=== PATIENT | male | born 1965 | race Caucasian/White ===

== ENCOUNTER 2019-05-17 15:00 | Inpatient (IN) ==
[2019-05-18] MEDS ORDERED: ACETAMINOPHEN 325 MG TABLET PO PRN (13:05)
[2019-05-18] MEDS ORDERED: ONDANSETRON 4 MG/2 ML VIAL IV PRN (13:05)
[2019-05-18] MEDS ORDERED: MORPHINE 4 MG/1 ML VIAL IV PRN (13:05)
[2019-05-18 13:41] LABS: Basophils % 0.2 % (0.0-0.8); Eosinophils % 0.3 % (0.00-10.9); Hematocrit 42.9 VOL% (42.0-52.0); Hemoglobin 13.6 GM/DL (14.0-18.0); Immature Granulocytes % 0.7 %; Lymphocytes # 1.8 10*3/uL (1.4-4.0); Lymphocytes % 12.2 % (21.2-54.2); Mean Corpuscular HGB Conc 31.7 GM/DL (32-36); Mean Corpuscular Volume 90.1 FL (87-102); Mean Platelet Volume 10.1 FL (9.6-12.0); Neutrophils % 79.6 % (38.7-73.9); Platelet Count 339 T/CUMM (130-400); Red Blood Count 4.76 MC/CUMM (3.8-5.5); White Blood Count 15.1 T/CUMM (4-12)
[2019-05-18 14:12] LABS: Albumin 4.1 G/DL (3.4-5.0); Bilirubin,Total 0.4 MG/DL (0.2-1.0); Calcium 9.7 MG/DL (8.5-10.1); Osmolality,Calculated 269.2 MOS/KG (273-304); Thyroid Stimulating Hormone 0.998 uIU/ml (0.358-3.74); Total Protein 8.1 G/DL (6.4-8.3)
[2019-05-18] MEDS: methylPREDNISolone SOD SUC 125 MG/2 ML VIAL IV SCH (16:03)
[2019-05-18] MEDS: SODIUM CHLORIDE 0.9% 1,000 ML IV SCH (16:03)
[2019-05-18] MEDS: IMMUNE GLOBULIN 10% 20 GM, IMMUNE GLOBULIN 10% 20 GM in PREMIX 1 EACH IV SCH (17:30)
[2019-05-18 17:42] LABS: Apearance,Urine CLEAR (Clear); Bilirubin,Urine Negative (Negative); Blood, Urine Negative (Negative); Glucose,Urine (UA) Negative (Negative); Hyaline Casts,Urine 11 /LPF (0-3); Ketones,Urine Negative (Negative); Mucus,Urine Occasional /LPF (Occasional); Nitrite,Urine Negative (Negative); Protein,Urine Negative; RBC,Urine <1 /HPF (0-4); Urine Color Yellow (Yellow); Urine Specific Gravity 1.018 (1.001-1.035); WBC,Urine <1 /HPF (0-6)
[2019-05-18] MEDS: ENOXAPARIN 40 MG/0.4 ML SYRINGE SUBCUT SCH (20:22)
[2019-05-19] MEDS: methylPREDNISolone SOD SUC 125 MG/2 ML VIAL IV SCH ×2 (01:30→12:30)
[2019-05-19] MEDS: SODIUM CHLORIDE 0.9% 1,000 ML IV SCH (06:15)
[2019-05-19] MEDS ORDERED: PANTOPRAZOLE 40 MG TABLET PO SCH (09:00)
[2019-05-19] MEDS: IMMUNE GLOBULIN 10% 20 GM, IMMUNE GLOBULIN 10% 20 GM in PREMIX 1 EACH IV SCH (15:01)
[2019-05-19] MEDS: ENOXAPARIN 40 MG/0.4 ML SYRINGE SUBCUT SCH (20:00)
[2019-05-20] MEDS: methylPREDNISolone SOD SUC 125 MG/2 ML VIAL IV SCH (00:58)
[2019-05-20] MEDS ORDERED: predniSONE 10 MG TABLET PO SCH (09:00)
[2019-05-20] MEDS ORDERED: methylPREDNISolone SOD SUC 125 MG/2 ML VIAL IV ONE (12:00)
[2019-05-20] MEDS: IMMUNE GLOBULIN 10% 20 GM, IMMUNE GLOBULIN 10% 20 GM in PREMIX 1 EACH IV SCH (14:30)
[2019-05-20 20:18] VITALS: BP 125/72
== END 2019-05-20 19:40 | disposition home or self-care (01) | DRG 57 ==
LOC: SUATTDRO 05-18 12:27 → N.4E 05-18 12:27
PROVIDERS: ADMIT Internal Medicine; ATTEND Family Medicine

== ENCOUNTER 2021-01-06 16:47 | Observation (INO) ==
[2021-01-06 18:15] LABS: Basophils % 0.1 % (0.0-0.8); Eosinophils # 0.1 10*3/uL (0.0-0.87); Eosinophils % 0.3 % (0.00-10.9); Hematocrit 38.7 VOL% (42.0-52.0); Hemoglobin 12.6 GM/DL (14.0-18.0); Immature Granulocytes % 1.1 %; Lymphocytes # 1.5 10*3/uL (1.4-4.0); Lymphocytes % 8.1 % (21.2-54.2); Mean Corpuscular HGB Conc 32.6 GM/DL (32-36); Mean Corpuscular Volume 90.8 FL (87-102); Mean Platelet Volume 10.8 FL (9.6-12.0); Monocytes % 6.9 % (1.7-12.7); Neutrophils % 83.5 % (38.7-73.9); Platelet Count 226 T/CUMM (130-400); Red Blood Count 4.26 MC/CUMM (3.8-5.5); Red Cell Distribution Width 14.1 % (9.3-17.3); White Blood Count 18.4 T/CUMM (4-12)
[2021-01-06 18:34] LABS: Albumin 3.5 G/DL (3.4-5.0); Bilirubin,Total 0.6 MG/DL (0.20-1.00); Calcium 9.3 MG/DL (8.5-10.1); Osmolality,Calculated 273.8 MOS/KG (273-304); Potassium 4.4 MMOL/L (3.5-5.1); Total Protein 7.3 G/DL (6.4-8.2)
[2021-01-06] MEDS ORDERED: cefTRIAXone 2,000 MG in SODIUM CHLORIDE 0.9% 100 ML IV STA (19:00)
[2021-01-06] MEDS ORDERED: ENOXAPARIN 30 MG/0.3 ML SYRINGE SUBCUT STA (19:01)
[2021-01-06] MEDS ORDERED: GLUCAGON 1 MG VIAL IM PRN (19:18)
[2021-01-06] MEDS ORDERED: DEXTROSE 50% 25 GM/50 ML VIAL IV PRN (19:18)
[2021-01-06] MEDS ORDERED: ONDANSETRON 4 MG/2 ML VIAL IV PRN (19:18)
[2021-01-06] MEDS ORDERED: predniSONE 10 MG TABLET PO SCH (21:00)
[2021-01-06] MEDS ORDERED: methylPREDNISolone SOD SUC 125 MG/2 ML VIAL IV ONE (21:00)
[2021-01-06] MEDS: AZITHROMYCIN INJ 500 MG in SODIUM CHLORIDE 0.9% 250 ML IV SCH (22:00)
[2021-01-06] MEDS: LACTATED RINGERS 1,000 ML IV SCH (22:00)
[2021-01-06] MEDS: methylPREDNISolone SOD SUC 125 MG/2 ML VIAL IV SCH (22:00)
[2021-01-06] MEDS: PYRIDOSTIGMINE BROMIDE 180 MG PO SCH (22:21)
[2021-01-06] MEDS: CALCIUM (CARBONATE)/VITAMIN D 600 MG-400 UNIT TABLET PO SCH (22:21)
[2021-01-06] MEDS: GLYCOPYRROLATE 1 MG TABLET PO SCH (22:21)
[2021-01-06] MEDS: ASCORBIC ACID 500 MG TABLET PO SCH (22:22)
[2021-01-06] MEDS ORDERED: IMMUNE GLOBULIN 10% 40 GM in PREMIX 1 EACH IV SCH (23:00)
[2021-01-06] MEDS ORDERED: ACETAMINOPHEN 325 MG TABLET PO ONE (23:05)
[2021-01-06] MEDS ORDERED: diphenhydrAMINE CAP 50 MG CAPSULE PO STA (23:05)
[2021-01-06] MEDS ORDERED: diphenhydrAMINE CAP 25 MG CAPSULE ONE (23:08)
[2021-01-07] MEDS: ALBUTEROL/IPRATROPIUM 3 ML NEB RESP TX SCH ×4 (01:08→19:58)
[2021-01-07] MEDS: methylPREDNISolone SOD SUC 125 MG/2 ML VIAL IV SCH ×4 (03:00→22:16)
[2021-01-07 03:39] LABS: Bilirubin,Urine Negative (Negative); Blood, Urine Negative (Negative); Glucose,Urine (UA) Negative (Negative); Ketones,Urine 5 mg/dL (Negative); Mucus,Urine Occasional /LPF (Occasional); Nitrite,Urine Negative (Negative); Protein,Urine 30 MG/DL; RBC,Urine 2 /HPF (0-4); Urine Appearance CLEAR (Clear); Urine Color Yellow (Yellow); Urine Specific Gravity 1.012 (1.001-1.035); Urine Urobilinogen < 2.0 EU/DL (0.2-1.0)
[2021-01-07 04:41] LABS: Basophils % 0.1 % (0.0-0.8); Eosinophils % 0.1 % (0.00-10.9); Hematocrit 36.7 VOL% (42.0-52.0); Hemoglobin 12.1 GM/DL (14.0-18.0); Immature Granulocytes % 1.3 %; Immature Granulocytes Absolute 0.21 #; Lymphocytes # 1.3 10*3/uL (1.4-4.0); Lymphocytes % 8.1 % (21.2-54.2); Mean Corpuscular Volume 89.3 FL (87-102); Monocytes % 2.4 % (1.7-12.7); Platelet Count 206 T/CUMM (130-400); Red Blood Count 4.11 MC/CUMM (3.8-5.5); Red Cell Distribution Width 13.8 % (9.3-17.3)
[2021-01-07 04:58] LABS: Albumin 3.2 G/DL (3.4-5.0); Bilirubin,Total 0.4 MG/DL (0.20-1.00); Calcium 9.2 MG/DL (8.5-10.1); Osmolality,Calculated 267.5 MOS/KG (273-304); Total Protein 8.2 G/DL (6.4-8.2)
[2021-01-07 05:07] LABS: Platelet Estimate Adequate
[2021-01-07] MEDS: ENOXAPARIN 40 MG/0.4 ML SYRINGE SUBCUT SCH (08:55)
[2021-01-07] MEDS: CALCIUM (CARBONATE)/VITAMIN D 600 MG-400 UNIT TABLET PO SCH ×2 (09:00→22:15)
[2021-01-07] MEDS: ASCORBIC ACID 500 MG TABLET PO SCH ×2 (09:00→22:15)
[2021-01-07] MEDS ORDERED: cefTRIAXone 1,000 MG VIAL IM SCH (09:00)
[2021-01-07] MEDS: PYRIDOSTIGMINE 60 MG TABLET PO SCH ×3 (09:00→17:16)
[2021-01-07] MEDS: PANTOPRAZOLE 40 MG TABLET PO SCH (09:00)
[2021-01-07] MEDS: amLODIPine 10 MG TABLET PO SCH (09:00)
[2021-01-07] MEDS: GLYCOPYRROLATE 1 MG TABLET PO SCH ×2 (09:02→22:14)
[2021-01-07] MEDS: azaTHIOprine 50 MG TABLET PO SCH (09:28)
[2021-01-07 14:23] LABS: Basophils % 0.1 % (0.0-0.8); Hematocrit 36.8 VOL% (42.0-52.0); Hemoglobin 12.3 GM/DL (14.0-18.0); Immature Granulocytes Absolute 0.28 #; Lymphocytes # 1.6 10*3/uL (1.4-4.0); Lymphocytes % 11.1 % (21.2-54.2); Mean Corpuscular HGB Conc 33.4 GM/DL (32-36); Mean Corpuscular Volume 88.5 FL (87-102); Mean Platelet Volume 10.2 FL (9.6-12.0); Monocytes % 3.1 % (1.7-12.7); Neutrophils % 83.7 % (38.7-73.9); Platelet Count 222 T/CUMM (130-400); Red Blood Count 4.16 MC/CUMM (3.8-5.5); Red Cell Distribution Width 13.8 % (9.3-17.3); White Blood Count 14.2 T/CUMM (4-12)
[2021-01-07 14:54] LABS: Atypical Lymphocytes Few
[2021-01-07 14:56] LABS: Anisocytosis Slight
[2021-01-07] MEDS: LACTATED RINGERS 1,000 ML IV SCH ×2 (15:26→15:35)
[2021-01-07] MEDS ORDERED: IMMUNE GLOBULIN IV ONE ×2 (16:00→18:00)
[2021-01-07] MEDS ORDERED: ACETAMINOPHEN 500 MG TABLET PO ONE (17:00)
[2021-01-07] MEDS ORDERED: diphenhydrAMINE CAP 50 MG CAPSULE PO ONE (17:00)
[2021-01-07] MEDS: PYRIDOSTIGMINE BROMIDE 180 MG PO SCH (22:15)
[2021-01-07] MEDS: AZITHROMYCIN INJ 500 MG in SODIUM CHLORIDE 0.9% 250 ML IV SCH (22:16)
[2021-01-07] MEDS: cefTRIAXone 1,000 MG in SODIUM CHLORIDE 0.9% 100 ML IV SCH (22:16)
[2021-01-08] MEDS: ALBUTEROL/IPRATROPIUM 3 ML NEB RESP TX SCH ×4 (00:41→18:56)
[2021-01-08] MEDS: methylPREDNISolone SOD SUC 125 MG/2 ML VIAL IV SCH ×4 (04:06→20:00)
[2021-01-08 05:09] LABS: Basophils % 0.2 % (0.0-0.8); Hematocrit 36.6 VOL% (42.0-52.0); Hemoglobin 11.8 GM/DL (14.0-18.0); Immature Granulocytes % 1.6 %; Immature Granulocytes Absolute 0.27 #; Lymphocytes # 3.2 10*3/uL (1.4-4.0); Lymphocytes % 18.9 % (21.2-54.2); Mean Corpuscular HGB Conc 32.2 GM/DL (32-36); Mean Corpuscular Volume 90.6 FL (87-102); Mean Platelet Volume 10.5 FL (9.6-12.0); Monocytes % 5.4 % (1.7-12.7); Neutrophils % 73.9 % (38.7-73.9); Platelet Count 237 T/CUMM (130-400); Red Blood Count 4.04 MC/CUMM (3.8-5.5); Red Cell Distribution Width 13.7 % (9.3-17.3); White Blood Count 16.7 T/CUMM (4-12)
[2021-01-08 05:32] LABS: Osmolality,Calculated 276.2 MOS/KG (273-304); Potassium 4.1 MMOL/L (3.5-5.1)
[2021-01-08 05:40] LABS: Band Neutrophils 3 % (0-10); Lymphocytes 16 % (20-55); Platelet Estimate Normal; Segmented Neutrophils 78 % (50-85); Total Cells Counted 100
[2021-01-08] MEDS: PANTOPRAZOLE 40 MG TABLET PO SCH (06:01)
[2021-01-08] MEDS: CALCIUM (CARBONATE)/VITAMIN D 600 MG-400 UNIT TABLET PO SCH ×2 (08:51→20:01)
[2021-01-08] MEDS: ENOXAPARIN 40 MG/0.4 ML SYRINGE SUBCUT SCH (08:51)
[2021-01-08] MEDS: GLYCOPYRROLATE 1 MG TABLET PO SCH ×2 (08:52→19:59)
[2021-01-08] MEDS: amLODIPine 10 MG TABLET PO SCH (08:52)
[2021-01-08] MEDS: azaTHIOprine 50 MG TABLET PO SCH (08:52)
[2021-01-08] MEDS: ASCORBIC ACID 500 MG TABLET PO SCH ×2 (08:52→20:01)
[2021-01-08] MEDS: PYRIDOSTIGMINE 60 MG TABLET PO SCH ×3 (08:52→16:30)
[2021-01-08] MEDS: LACTATED RINGERS 1,000 ML IV SCH ×3 (08:52→22:08)
[2021-01-08] MEDS ORDERED: ACETAMINOPHEN 500 MG TABLET PO PRN (19:08)
[2021-01-08] MEDS: ALUMINUM/MAGNES/SIMETH MAX STR 30 ML UDCUP PO SCH ×2 (19:48→20:13)
[2021-01-08] MEDS: cefTRIAXone 1,000 MG in SODIUM CHLORIDE 0.9% 100 ML IV SCH (19:59)
[2021-01-08] MEDS: PYRIDOSTIGMINE BROMIDE 180 MG PO SCH (20:00)
[2021-01-09] MEDS: ALBUTEROL/IPRATROPIUM 3 ML NEB RESP TX SCH ×2 (01:46→09:36)
[2021-01-09] MEDS: methylPREDNISolone SOD SUC 125 MG/2 ML VIAL IV SCH ×2 (04:12→09:10)
[2021-01-09] MEDS: PANTOPRAZOLE 40 MG TABLET PO SCH ×2 (04:12→06:03)
[2021-01-09 04:49] LABS: Basophils % 0.2 % (0.0-0.8); Hematocrit 37.6 VOL% (42.0-52.0); Hemoglobin 12.1 GM/DL (14.0-18.0); Lymphocytes # 1.7 10*3/uL (1.4-4.0); Lymphocytes % 6.7 % (21.2-54.2); Mean Corpuscular HGB Conc 32.2 GM/DL (32-36); Mean Corpuscular Volume 91.5 FL (87-102); Mean Platelet Volume 10.5 FL (9.6-12.0); Monocytes % 4.8 % (1.7-12.7); Neutrophils % 86.3 % (38.7-73.9); Platelet Count 237 T/CUMM (130-400); Red Blood Count 4.11 MC/CUMM (3.8-5.5); Red Cell Distribution Width 13.9 % (9.3-17.3); White Blood Count 25.4 T/CUMM (4-12)
[2021-01-09 05:08] LABS: Calcium 9.1 MG/DL (8.5-10.1); Osmolality,Calculated 277.2 MOS/KG (273-304)
[2021-01-09 05:14] LABS: Atypical Lymphocytes Few
[2021-01-09] MEDS: ENOXAPARIN 40 MG/0.4 ML SYRINGE SUBCUT SCH (09:05)
[2021-01-09] MEDS: azaTHIOprine 50 MG TABLET PO SCH (09:06)
[2021-01-09] MEDS: PYRIDOSTIGMINE 60 MG TABLET PO SCH ×2 (09:06→12:15)
[2021-01-09] MEDS: GLYCOPYRROLATE 1 MG TABLET PO SCH (09:06)
[2021-01-09] MEDS: ALUMINUM/MAGNES/SIMETH MAX STR 30 ML UDCUP PO SCH ×2 (09:06→12:16)
[2021-01-09] MEDS: CALCIUM (CARBONATE)/VITAMIN D 600 MG-400 UNIT TABLET PO SCH (09:08)
[2021-01-09] MEDS: amLODIPine 10 MG TABLET PO SCH (09:08)
[2021-01-09] MEDS: ASCORBIC ACID 500 MG TABLET PO SCH (09:09)
[2021-01-09] MEDS: LACTATED RINGERS 1,000 ML IV SCH (09:11)
[2021-01-09 11:43] VITALS: BP 162/81
[2021-01-09] MEDS ORDERED: busPIRone 5 MG TABLET PO SCH (21:00)
[2021-01-09] MEDS ORDERED: predniSONE 20 MG TABLET PO SCH (21:00)
== END 2021-01-09 12:42 | disposition home or self-care (01) ==
LOC: N.ED 16:47 → SUATTDRO 19:18 → N.EDINP 19:18 → INTOOBSV 19:18 → N.EDINP 01-07 13:37 → N.5E 01-07 13:52
PROVIDERS: ADMIT Internal Medicine; ATTEND Internal Medicine